=== PATIENT | male | born 1990 | race Caucasian/White ===

== ENCOUNTER 2016-12-09 15:58 | Emergency (ER) | payer OTHER ==
[~2016-12-09] VITALS: Ht 165.1 cm; Wt 99.8 kg
[2016-12-09 16:15] VITALS: BP 120/69
--- NOTE | 2016-12-09 19:02 | NUR ---
Patient ambulated to bed 6. RN evaluating patient at bedside.
--- NOTE | 2016-12-09 19:18 | NUR ---
PATIENT PRESENTS TO ED WITH abd pain with nausea and vomitting . SKIN IS PINK/WARM/DRY; AAOX4 WITH EVEN AND STEADY GAIT; LUNGS CLEAR BL; HR EVEN AND REGULAR; PT DENIES ANY FEVER, CP, SOB, OR COUGH AT THIS TIME; PATIENT STATES PAIN OF 8/10 AT THIS TIME; VSS; PATIENT POSITIONED FOR COMFORT; HOB ELEVATED; BEDRAILS UP X2; BED DOWN. ER MD MADE AWARE OF PT STATUS.
--- NOTE | 2016-12-09 19:19 | NUR ---
Dr. Vasquez evaluating patient at bedside.
[2016-12-09] MEDS ORDERED: ONDANSETRON 4 MG ODT PO ONE (19:25)
--- NOTE | 2016-12-09 19:40 | NUR ---
PO CHALLENGE, PT TOLERATED WELL, NO EMESIS AT THIS TIME.
[2016-12-09 19:57] VITALS: BP 105/70
--- NOTE | 2016-12-09 19:58 | NUR ---
Patient discharged with v/s stable. Written and verbal after care instructions given and explained. Patient alert, oriented and verbalized understanding of instructions. Ambulatory with steady gait. All questions addressed prior to discharge. ID band removed. Patient advised to follow up with PMD. Rx of ZOFRAN AND PEPCID given. Patient educated on indication of medication including possible reaction and side effects. Opportunity to ask questions provided and answered.
== END 2016-12-09 20:00 | disposition home or self-care (01) ==
LOC: MED 15:58
DX: R11.2 Nausea with vomiting, unspecified (principal); R19.7 Diarrhea, unspecified; F17.210 Nicotine dependence, cigarettes, uncomplicated; F12.90 Cannabis use, unspecified, uncomplicated
CPT/HCPCS: 82948; 99283; S0119

== ENCOUNTER 2017-12-16 20:01 | Emergency (ER) | payer OTHER ==
[~2017-12-16] VITALS: Ht 165.1 cm; Wt 99.8 kg
[2017-12-16 20:03] VITALS: BP 128/68
--- NOTE | 2017-12-16 20:08 | NUR ---
PT AMBULATED TO ER BED 02
--- NOTE | 2017-12-16 20:16 | NUR ---
27Y/M PRESENTS TO ER C/O RT SHOULDER PAIN X1 WEEK SEEN BY PCP AND URGENT CARE THIS WEEK. PAIN 7/10, NON RADIATING, PT DENIES TAKING ANY PAIN MEDICATION TODAY, STATES HE HAS BEEN TAKING NORCO AND IBUPROFEN W/ NO RELIEF. +CMS. NO PMH, NKA
[2017-12-16 20:48] VITALS: BP 119/72
--- NOTE | 2017-12-16 20:49 | NUR ---
Patient discharged with v/s stable. Written and verbal after care instructions given and explained. Patient alert, oriented and verbalized understanding of instructions. Ambulatory with steady gait. All questions addressed prior to discharge. ID band removed. Patient advised to follow up with PMD. Rx of MEDROL DOSE PACK, MOTRIN 800MG, AND ULTRAM 50MG given. Patient educated on indication of medication including possible reaction and side effects. Opportunity to ask questions provided and answered.
== END 2017-12-16 20:49 | disposition home or self-care (01) ==
LOC: MED 20:01
DX: M25.511 Pain in right shoulder (principal)
CPT/HCPCS: 99283

== ENCOUNTER 2018-01-18 11:33 | Emergency (ER) | payer OTHER ==
[~2018-01-18] VITALS: Ht 165.1 cm; Wt 97.5 kg
[2018-01-18 11:37] VITALS: BP 145/73
[2018-01-18] MEDS ORDERED: KETOROLAC 30 MG/ML VIAL IM ONE (12:50)
[2018-01-18] MEDS ORDERED: DEXAMETHASONE 10 MG/ML VIAL IM ONE (12:50)
[2018-01-18 13:50] VITALS: BP 145/73
== END 2018-01-18 12:47 | disposition home or self-care (01) ==
LOC: MED 11:33
DX: S39.012A Strain of muscle, fascia and tendon of lower back, initial encounter (principal); G89.29 Other chronic pain; X58.XXXA Exposure to other specified factors, initial encounter; Y93.89 Activity, other specified; Y92.89 Other specified places as the place of occurrence of the external cause; Y99.8 Other external cause status
CPT/HCPCS: 96372; 99284; J1100; J1885

== ENCOUNTER 2021-07-11 01:54 | Emergency (ER) | payer OTHER ==
[~2021-07-11] VITALS: Ht 165.1 cm; Wt 94.8 kg
[2021-07-11 02:01] VITALS: BP 150/90
[2021-07-11 02:05] VITALS: BP 150/90
--- NOTE | 2021-07-11 02:06 | NUR ---
PT AMBULATED TO LOBBY TO A/W BED
--- NOTE | 2021-07-11 02:10 | NUR ---
SEE COMPLETE ASSESSMENT
[2021-07-11] MEDS ORDERED: KETOROLAC 60 MG/2 ML VIAL IM ONE (02:40)
[2021-07-11] MEDS ORDERED: NAPR-54 PO (03:12)
--- NOTE | 2021-07-11 03:16 | NUR ---
Patient discharged with v/s stable. Written and verbal after care instructions given and explained BY DR. WOODALL. Patient alert, oriented and verbalized understanding of instructions. Ambulatory with steady gait. All questions addressed prior to discharge. ID band removed. Patient advised to follow up with PMD. Rx of NAPROSYN given. Patient educated on indication of medication including possible reaction and side effects. Opportunity to ask questions provided and answered.
== END 2021-07-11 03:16 | disposition home or self-care (01) ==
LOC: MED 01:54
DX: S33.5XXA Sprain of ligaments of lumbar spine, initial encounter (principal); Z79.1 Long term (current) use of non-steroidal anti-inflammatories (NSAID); X58.XXXA Exposure to other specified factors, initial encounter; Y92.89 Other specified places as the place of occurrence of the external cause; Y93.89 Activity, other specified; Y99.8 Other external cause status
CPT/HCPCS: 96372; 99283; J1885

== ENCOUNTER 2022-07-16 13:26 | Emergency (ER) | payer MEDICAID, OTHER ==
[~2022-07-16] VITALS: Ht 165.1 cm; Wt 102.6 kg
[~2022-07-16 13:26] MED LIST: NAPR-54 PO
--- NOTE | 2022-07-16 14:01 | NUR ---
FLU, COVID SWABS DONE.
[2022-07-16] MEDS ORDERED: BPM/118S31 PO (14:50)
[2022-07-16] MEDS ORDERED: IBUP-2213 PO (14:50)
[2022-07-16] MEDS ORDERED: ALBU0.0912 IH (14:50)
--- NOTE | 2022-07-16 15:17 | NUR ---
Patient discharged with v/s stable. Written and verbal after care instructions given and explained. Patient alert, oriented and verbalized understanding of instructions. Ambulatory with steady gait. All questions addressed prior to discharge. ID band removed. Patient advised to follow up with PMD. Rx of ibuprofen, bromfed dm, proventil (sent) given. Patient educated on indication of medication including possible reaction and side effects. Opportunity to ask questions provided and answered. copy of work note, labs, imaging given
== END 2022-07-16 15:17 | disposition home or self-care (01) ==
LOC: MED 13:26
DX: J06.9 Acute upper respiratory infection, unspecified (principal); Z20.822 Contact with and (suspected) exposure to COVID-19
CPT/HCPCS: 71045; 99284